=== PATIENT | female | born 1930 | race Caucasian/White ===

== ENCOUNTER 2021-01-29 12:05 | Observation (INO) | payer OTHER ==
[~2021-01-29] VITALS: Ht 165.1 cm; Wt 58.7 kg
[2021-01-29 12:20] VITALS: BP 135/65
[2021-01-29] MEDS ORDERED: TYLENOL325 M1 PO (12:25)
[2021-01-29] MEDS ORDERED: AMOXICILLIN 50500 MG PO (12:26)
[2021-01-29] MEDS ORDERED: MAGNEBIND 4001 EAC1 PO (12:28)
[2021-01-29] MEDS ORDERED: CARVEDILOL6.25 M1 PO (12:29)
[2021-01-29] MEDS ORDERED: VITAMIN D310 MC2 PO (12:29)
[2021-01-29 12:32] LABS: ABSOLUTE BASOPHILS 0.1 thou/uL (0.0-0.2); ABSOLUTE EOSINOPHILS 0.1 thou/uL (0.0-0.7); ABSOLUTE MONOCYTES 1.1 thou/uL (0.0-1.2); ABSOLUTE NEUTROPHILS 11.4 thou/uL (1.6-8.1); BASOPHILS 0.6 %; EOSINOPHILS 0.8 %; HEMATOCRIT 38.9 % (37.0-47.0); LYMPHOCYTES 13.8 %; MCH 28.7 pg (26.0-34.0); MCHC 33.4 g/dL (28.0-37.0); MCV 86.2 fL (80.0-100.0); MONOCYTES 7.6 %; MPV 7.9 fl. (7.2-11.1); NUCLEATED RBCS 0 /100WBC; PLATELET COUNT* 381 thou/uL (150-400); POLYS 77.2 %; RBC 4.51 mil/uL (4.20-5.00); RDW-CV 13.9 % (10.5-14.5); WBC 14.7 thou/uL (4.0-11.0)
[2021-01-29] MEDS ORDERED: NEURONTIN100 MG PO (12:33)
[2021-01-29] MEDS ORDERED: NORCO5 PO (12:34)
[2021-01-29] MEDS ORDERED: LEVO-T75 MCG PO (12:34)
[2021-01-29] MEDS ORDERED: ASPERCREME1 EACH TOP (12:34)
[2021-01-29] MEDS ORDERED: METHOCARBAMOL500 M2 PO (12:34)
[2021-01-29] MEDS ORDERED: [UNRECOGNIZED DRUG - OTHER] PO (12:35)
[2021-01-29] MEDS ORDERED: MULTIPLE VITAM1 EAC2 PO (12:35)
[2021-01-29] MEDS ORDERED: SENNA PLUS TAB1 EACH PO (12:35)
[2021-01-29] MEDS ORDERED: ZINC50 M1 PO (12:36)
[2021-01-29 12:45] LABS: CALCIUM 8.5 mg/dL (8.5-10.1); CREATININE 0.9 mg/dL (0.6-1.3)
[2021-01-29 12:50] LABS: TOTAL BILIRUBIN 0.4 mg/dL (<0.1-1.0); TOTAL PROTEIN 6.2 g/dL (6.4-8.2)
[2021-01-29 13:19] LABS: URINE BILIRUBIN NEGATIVE (Negative); URINE BLOOD 2+ (Negative); URINE CLARITY CLEAR; URINE COLOR YELLOW; URINE GLUCOSE-RANDOM NEGATIVE (Negative); URINE KETONES NEGATIVE (Negative); URINE LEUKOCYTES-REFLEX 1+ (Negative); URINE NITRITE-REFLEX NEGATIVE (Negative); URINE PROTEIN NEGATIVE (Negative); URINE SPECIFIC GRAVITY 1.015 (1.005-1.030)
[2021-01-29 13:27] LABS: BACTERIA-REFLEX 1-9 Few /HPF (None Seen); CASTS None Seen /LPF (None Seen); CRYSTALS None Seen /LPF (None Seen); MUCUS None Seen strn/LPF (None Seen); SQUAMOUS 4-10 Moderate /LPF (0-3); URINE WBC-REFLEX 0-5 Rare /HPF (0-5)
--- NOTE | 2021-01-29 13:35 | EKG ---
[place] [address] ELECTROCARDIOGRAM REPORT Name: CAROLINA CUNNINGHAM Room: [facility]#: [id number] Admission: 01/29/21 Attend Phys: Discharge: Date of : [birth year] Date of Service: 01/29/21 1211 Report #: [id number] THIS REPORT FOR: //name// [facility] ED Test Date: 2021-01-29 Test Time: 12:11:24 Pat Name: CAROLINA ALEXANDERRavenANOOPMEIR Department: Room: Gender: Forensic Science Examiner: : 1930 Requested By: Feliberto Thao Order Number: [id number] MD: Chip Resendiz Measurements Intervals [place] Rate: 70 P: 30 NH: 181 QRS: -32 QRSD: 91 T: 35 QT: 394 QTc: 426 Interpretive Statements Sinus rhythm Left axis deviation septal infarct, old No previous ECG available for comparison Electronically Signed On 01-29-2021 13:34:59 CDT by Chip Resendiz [email or web address] <ELECTRONICALLY SIGNED> By: Chip Resendiz MD, [facility] 01/29/21 1334 121 121 Chip Resendiz MD, [facility] /EPI
[2021-01-29 15:28] VITALS: BP 131/63
[2021-01-29 15:37] VITALS: BP 131/63
[2021-01-29 16:10] VITALS: BP 131/63
[2021-01-29 16:11] VITALS: BP 131/63
[2021-01-29 16:12] VITALS: BP 107/49
== END 2021-01-29 16:14 | disposition home or self-care (01) ==
LOC: M.ERS 12:05 → M.TBA-ER 13:42
PROVIDERS: Family Medicine; ADMIT Internal Medicine; ATTEND Internal Medicine
DX: M54.9 Dorsalgia, unspecified (principal); M80.08XA Age-related osteoporosis with current pathological fracture, vertebra(e), initial encounter for fracture; I10 Essential (primary) hypertension; E03.9 Hypothyroidism, unspecified; E87.1 Hypo-osmolality and hyponatremia; Z20.822 Contact with and (suspected) exposure to COVID-19; Z79.899 Other long term (current) drug therapy

== ENCOUNTER → 2021-02-01 | Outpatient (CLI) | payer OTHER ==
[~2021-02-01] MED LIST: AMOXICILLIN 50500 MG PO; ASPERCREME1 EACH TOP; CARVEDILOL6.25 M1 PO; LEVO-T75 MCG PO; LIDODERM1 EACH TOP; MAGNEBIND 4001 EAC1 PO; METHOCARBAMOL500 M2 PO; MULTIPLE VITAM1 EAC2 PO; NEURONTIN100 MG PO; NORCO5 PO; ONDANSETRON HCL4 M2 PO; SENNA PLUS TAB1 EACH PO; TYLENOL325 M1 PO; VITAMIN D310 MC2 PO; ZINC50 M1 PO; [UNRECOGNIZED DRUG - OTHER] PO
== END ==
LOC: M.PC 10:37
PROVIDERS: ATTEND Physical Medicine & Rehabilitation
DX: M51.16 Intervertebral disc disorders with radiculopathy, lumbar region (principal); M47.26 Other spondylosis with radiculopathy, lumbar region; M48.061 Spinal stenosis, lumbar region without neurogenic claudication; M41.86 Other forms of scoliosis, lumbar region; E03.9 Hypothyroidism, unspecified; Z90.49 Acquired absence of other specified parts of digestive tract

== ENCOUNTER → 2021-03-10 | Outpatient (CLI) | payer OTHER | LOC: M.PC 09:50 | PROVIDERS: ATTEND Physical Medicine & Rehabilitation | DX: M47.26 Other spondylosis with radiculopathy, lumbar region (principal); M51.16 Intervertebral disc disorders with radiculopathy, lumbar region; M48.061 Spinal stenosis, lumbar region without neurogenic claudication; M79.605 Pain in left leg; M41.80 Other forms of scoliosis, site unspecified ==